=== PATIENT | female | born 1970 | race Caucasian/White ===

== ENCOUNTER 2019-01-31 10:04 | Observation (INO) ==
[2019-01-31] MEDS ORDERED: Aspirin 325 MG TABLET PO ONE (10:45)
--- NOTE | 2019-01-31 10:50 | Emergency Department Note ---
Disposition Clinical Impression: Rash Chest pain Qualifiers: Chest pain type: unspecified Qualified Code(s): R07.9 - Chest pain, unspecified Disposition: Admitted As Inpatient Condition: Fair Referrals: Shad Ryan Jr, MD [Primary Care Provider] - Forms: ED Satisfaction Letter Time of Disposition: 12:18 Chest Pain HPI - General Chief Complaint: ED Chest Pain Stated Complaint: Chest Pain Time Seen by Provider: 01/31/19 10:14 Source: patient Mode of arrival: ambulatory Limitations: no limitations Vital Signs Reviewed: Yes Nursing Notes Reviewed: Yes - History of Present Illness HPI Narrative: 48-year-old female transfer evaluation of chest pain. Patient states she has recently been treated for poison sumac and is been on a prednisone taper now for 2 weeks. States that around 7:00 this morning she started have some uneasiness in her chest. States she did have twinges of chest pain. She also noted pain in her left shoulder as well as her right shoulder. Patient states she has history of left shoulder pain with carpal tunnel. Patient denies any nausea or vomiting. States she was sweating last night. Denying any abdominal pain. No fevers or cough. No dyspnea. No history of any known coronary disease. No history of high blood pressure or diabetes. Does have a family history of MT with her father having heart attack in his 60s. Severity scale (1-10): 7 - Related Data Home Medications Medication Instructions Recorded Confirmed Xanax 11/25/15 Cymbalta 09/10/18 Hydrocodon-Acetamin 7.5-325/15 09/10/18 PriLOSEC 09/10/18 Allergies Allergy/AdvReac Type Severity Reaction Status Date / Time propoxyphene Allergy Nausea Verified 09/10/18 06:59 [From Darvocet-N] All systems ED: reviewed and negative except as stated. Constitutional: Denies: fever Cardiovascular: Reports: chest pain Respiratory: Denies: cough, dyspnea Gastrointestinal: Denies: abdominal pain, nausea, vomiting Chest Pain PMH - Past Medical History Medical history: Reports: GERD Surgical history: Reports: no surgical history Psychiatric history: Reports: no psych history - Social History Smoking Status: Never smoker Alcohol use: Reports: rarely Drug use: Reports: none Physical Exam - General Limitations: no limitations General appearance: alert, in no apparent distress - Head Head exam: atraumatic, normocephalic, normal inspection - Eye Eye exam: Present: normal appearance, PERRL, EOMI - ENT ENT exam: normal exam - Neck Neck exam: Present: normal inspection - Chest Chest inspection: Present: normal inspection, symmetric chest wall rise - Respiratory Respiratory exam: Present: normal lung sounds bilaterally. Absent: respiratory distress - Cardiovascular Cardiovascular exam: Present: regular rate, normal rhythm - Abdominal Exam Abdominal exam: Present: soft, Non-Tender - Extremities Exam Extremities exam: Present: other (Patient has extensive erythema consistent with poison sumac on her right upper extremity. ) - Back Exam Back exam: Present: normal inspection - Neurological Exam Neurological exam: Present: alert - Skin Skin exam: Present: other (Poison sumac noted on the patient's abdomen as well as on the right upper extremity.) Course Vital Signs Temperature 98.0 F 01/31/19 10:17 Pulse Rate 88 01/31/19 10:17 Respiratory Rate 16 01/31/19 10:17 Blood Pressure 128/92 01/31/19 10:17 O2 Sat by Pulse Oximetry 98 01/31/19 10:17 Temperature 98.0 F 01/31/19 10:17 Pulse Rate 74 01/31/19 11:53 Respiratory Rate 16 01/31/19 11:53 Blood Pressure 135/103 01/31/19 11:53 O2 Sat by Pulse Oximetry 98 01/31/19 11:53 Oxygen Delivery Oxygen Delivery Room Air Chest Pain - MDM Narrative Medical decision making narrative: Patient presented for concerns of chest pain. Patient did have a concerning history with chest pressure radiating of the right shoulder and was diaphoretic. Early family history of heart disease in the 50s. Patient's initial troponin is negative. Given the patient's moderate risk patient will be admitted for ACS rule out. Patient is agreeable with that plan of care. Patient was offered skilled troponins in the ED. There is no concerns for PE and/or dissection. - Lab Data Lab results reviewed: Yes I reviewed the patient's lab results. Result diagrams: 01/31/19 10:55 01/31/19 10:55 Lab Results 01/31/19 01/31/19 Range/Units 10:55 10:55 WBC 19.2 H (4.3-11.1) K/mcL RBC 4.51 (3.82-4.97) M/mcL Hgb 13.5 (11.5-15.4) g/dL Hct 40.8 (35.3-44.9) % MCV 90.5 (83.0-100.0) fL MCH 29.9 (28.0-33.3) pg MCHC 33.1 (31.6-35.5) g/dL RDW 12.9 (11.5-14.5) % Plt Count 341 (140-400) K/mcL MPV 9.5 (9.4-12.4) fL Immature Gran % 2.9 (0-4) % Seg Neutrophils % 64.1 % Lymphocytes % 17.8 % Monocytes % 8.7 % Eosinophils % 5.9 % Basophils % 0.6 % Neutrophils # 12.3 H (1.6-8.9) K/mcL Lymphocytes # 3.4 (0.6-4.6) K/mcL Monocytes # 1.7 H (0.0-1.3) K/mcL Eosinophils # 1.1 H (0.0-0.6) K/mcL Basophils # 0.1 (0.0-0.2) K/mcL Sodium 137 (136-145) mEq/L Potassium 3.9 (3.5-5.1) mEq/L Chloride 106 (98-107) mEq/L Carbon Dioxide 24 (23-29) mEq/L BUN 21 H (6-20) mg/dL Creatinine 0.61 (0.60-1.20) mg/dL Est GFR ( Amer) > 60 (> 60) Est GFR (Non-Af Amer) > 60 (> 60) BUN/Creatinine Ratio 34 H (6-26) Glucose 101 (70-105) mg/dL Calculated Osmolality 287 (280-300) Calcium 8.9 (8.6-10.3) mg/dL Troponin I < 0.03 (< 0.04) ng/mL - Radiology Data Radiology results reviewed: Yes I reviewed the patient's radiology results. Chest X-Ray 01/31/19 10:12 IMPRESSION: No evidence of acute cardiopulmonary disease. D/ / Rex Kemp MD / Rex Kemp MD Interpreting Provider: Rex Kemp MD - EKG Data EKG attestation: Yes I reviewed and interpreted this EKG. EKG shows normal: sinus rhythm Rate: normal Rhythm: NSR [place]/QRS: left axis deviation Q waves: v1 Interpretation: no acute changes, nonspecific ST-T wave changes Heart Score - Score History: Highly Suspicious EKG: Normal Age: 45-65 Risk Factors: 1-2 risk factors Troponin: Less than normal limit HEART Score Total: 4 S.Keenan - Rinku Situation: Demographics Background: Presenting Complaint Assessment: Vital Signs, Course and respsone to treatment, Patient/Family Expectation Recommendation: Barrier(s) to disposition, Recommendation based on pending studies, treatments, or consults S.B.AMer Report Given to: Dr. Lina Dobbs Repor Time: 12:17 Attestation Statement - Attestation Attestation: This documentation is done with the assistance of Dragon dictation. Despite efforts made to ensure accuracy, there may be inaccuracies in supervisor net making or spelling and typographical errors. I examined this patient and my medical decision-making was reviewed with the Resident Physician. I agree with the documented findings, disposition and treatment plan as described except to the extent set forth below. Patient seen and evaluated by Dr. Dacosta and myself, I agree with his evaluation and management plan, I supervised the care the patient's stay. Patient comes in today complaining of chest pain with anterior chest when into both her shoulder blades. She says that she thinks this could be anxiety she has had that before she said 8 years ago she had a normal stress test. She says that right now the pain is better. She has also been suffering with what she describes as poison sumac she got a rash on her arms and legs is been through 3 courses steroids and has not gone away. No difficulty breathing or swallowing. Awaiting labs and then shared decision-making with her when those come back. She is in agreement with plan.
[2019-01-31 11:08] LABS: Basophils # 0.1 K/mcL (0.0-0.2); Basophils % 0.6 %; Eosinophils # 1.1 K/mcL (0.0-0.6); Eosinophils % 5.9 %; Hematocrit 40.8 % (35.3-44.9); Hemoglobin 13.5 g/dL (11.5-15.4); Immature Granulocytes % 2.9 % (0-4); Lymphocytes # 3.4 K/mcL (0.6-4.6); Lymphocytes % 17.8 %; Mean Corpuscular HGB Conc 33.1 g/dL (31.6-35.5); Mean Corpuscular Hemoglobin 29.9 pg (28.0-33.3); Mean Corpuscular Volume 90.5 fL (83.0-100.0); Mean Platelet Volume 9.5 fL (9.4-12.4); Monocytes # 1.7 K/mcL (0.0-1.3); Monocytes % 8.7 %; Neutrophils # 12.3 K/mcL (1.6-8.9); Platelet Count 341 K/mcL (140-400); Red Blood Count 4.51 M/mcL (3.82-4.97); Red Cell Distribution Width 12.9 % (11.5-14.5); Segmented Neutrophils % 64.1 %
[2019-01-31 11:29] LABS: BUN/Creatinine Ratio 34 (6-26); Blood Urea Nitrogen 21 mg/dL (6-20); Calcium 8.9 mg/dL (8.6-10.3); Carbon Dioxide 24 mEq/L (23-29); Chloride 106 mEq/L (98-107); Glucose 101 mg/dL (70-105); Osmolality,Calculated 287 (280-300); Potassium 3.9 mEq/L (3.5-5.1); Sodium 137 mEq/L (136-145); Troponin I < 0.03 ng/mL (< 0.04); eGFR For Non-African Americans > 60 (> 60)
[2019-01-31] MEDS ORDERED: Nitroglycerin 0.4 MG TAB.SUBL SL PRN (12:10)
[2019-01-31] MEDS ORDERED: Ondansetron 4 MG/2 ML VIAL IVP PRN (12:54)
[2019-01-31] MEDS ORDERED: Acetaminophen 325 MG TABLET PO PRN (12:54)
--- NOTE | 2019-01-31 12:54 | Internal Med History&Physical ---
Date of Encounter: 01/31/19 Time of Encounter: 12:45 Internal Medicine - H&P: HPI Chief complaint: Chest pain Admitted From: Emergency Dept History of present illness: Mary Chopra is a 48 F w hx GERD, anxiety, who p/w chest pain. Pain began this AM and was a pressure-like sensation. Not exertional, no improvement with rest. Pain is not positional. She does report some diaphoresis and nausea, and says that the pain radiated into her left shoulder and subsequently over into her right shoulder. She denies previous symptoms like this in the past. Never smoker. No personal hx of diabetes, HTN, or HLD. Does have +FHx of diabetes and father with DE in his 50s. The pain currently has gone away, and she would like to go home if possible. Recently, patient got into poison sumac and has been on steroids for the last two weeks, initially at a small dose (30 mg then 5 less each day for total of 6 days), and with persistence of symptoms she was placed on higher dose taper and she just decreased from 40 to 20 yesterday. Says her rash is getting better and while still very itchy, it is not red or hot or painful and she denies fevers. No recent vURIs. In the ED, pt vitals wnl. CXR, ECG, and trop unremarkable. Labs with WBC 19, BUN 21 (BUN:Cr ratio 34), trop undetectable x1. Given ASA and admission requested. Past medical, surgical, social, and family histories reviewed and updated as below. Past Med Surg Social Fam HX - Past Medical History Medical history: GERD Psychiatric history: no psych history - Past Surgical History Surgical History: no surgical history - Social History Smoking Status: Never smoker Smokeless Tobacco Status: Yes Alcohol use: rarely Drug use: none Internal Medicine - H&P: Meds ALPRAZolam [Xanax 1 MG Tablet] 1 mg PO HS PRN 01/31/19 [History] HYDROcodone/Acet 5/325 mg [[place] 5-325 mg] 1 tab PO BID PRN 01/31/19 [History] Lansoprazole [Prevacid] 30 mg PO DAILY 01/31/19 [History] Vortioxetine Hydrobromide [Trintellix] 10 mg PO DAILY 01/31/19 [History] Allergy/AdvReac Type Severity Reaction Status Date / Time propoxyphene Allergy See Verified 01/31/19 13:40 [From Steffen] Comments All Systems PM: A 10-system review of systems was performed and is negative for pertinent findings except as documented above in the HPI. - Constitutional Vitals: Temp Pulse Resp BP Pulse Ox 98.0 F 71 18 135/103 99 01/31/19 10:17 01/31/19 12:32 01/31/19 12:32 01/31/19 11:53 01/31/19 12:32 Exam: General: NAD, AAOx3, good eye contact, well appearing, not anxious or makayla phoretic Head: Atraumatic, normocephalic. Face symmetric Eyes: EOMI, sclerae anicteric ENT: Mucous membranes moist. Normal oral mucosa and dentition. Trachea midline. Thoracic: No visible chest wall deformities. Normal breath sounds b/l, no wheezing or crackles Cardio: Normal S1 and S2, regular rate and rhythm, no murmurs. Abdomen: Soft, nontender, nondistended. Extremities: Warm, well perfused. DP pulses 2+ b/l. No clubbing, cyanosis. No edema Skin: Faint erythema on most of RUE Neuro: Awake, fully oriented. Good memory, concentration, attention. Speech fluent. Internal Med - H&P Results - Labs CBC & Chem 7: 01/31/19 10:55 01/31/19 10:55 Labs: Short CBC 01/31/19 Range/Units 10:55 WBC 19.2 H (4.3-11.1) K/mcL Hgb 13.5 (11.5-15.4) g/dL Hct 40.8 (35.3-44.9) % Plt Count 341 (140-400) K/mcL Neutrophils # 12.3 H (1.6-8.9) K/mcL BMP 01/31/19 10:55 Sodium 137 Potassium 3.9 Chloride 106 Carbon Dioxide 24 BUN 21 H Creatinine 0.61 Glucose 101 Calcium 8.9 Cardiac Enzymes 01/31/19 Range/Units 10:55 Troponin I < 0.03 (< 0.04) ng/mL - Impressions ITS Impressions Chest X-Ray 01/31/19 10:12 IMPRESSION: No evidence of acute cardiopulmonary disease. D/ / Rex Kemp MD / Rex Kemp MD Interpreting Provider: Rex Kemp MD - Summary of Assessment and Plan Summary of Assessment and Plan: Mary Chopra is a 48 F w hx GERD and anxiety who p/w atypical chest pain and leukocytosis. Chest pain: ddx including GERD w recent prednisone use, anxiety, possible CAD. HEART score is 3 at highest, with initial trop and ECG unremarkable. Shared decision making w patient results in patient requesting discharge today if repeat trop is normal, with follow up outpatient for further testing per PCP if warranted. - could consider outpatient exercise ECG stress Leukocytosis: possible allergic contact dermatitis or from steroids, no infectious s/sx, rec close outpatient follow up Elevated BUN:Cr ratio: suspect 2/2 increased urate production from steroids, encourage PO hydration and d/c steroids GERD: home PPI Mood disorder: home cymbalta, holding home benzo PPx: ambulation FEN: cardiac Lines: PIV Consults: Code: Full Dispo: obs for chest pain, anticipate d/c later today
[2019-01-31] MEDS ORDERED: Dexamethasone 10 MG/ML VIAL IVP ONE (13:11)
[2019-01-31 14:04] LABS: Estimated Average Glucose 111 mg/dl; Hemoglobin A1C 5.5 %
[2019-01-31 16:19] VITALS: BP 126/87
--- NOTE | 2019-01-31 16:25 | Discharge Summary ---
- NOTES TO OUTPATIENT PROVIDER Notes to Outpatient Provider: Chest pain; trops negative. Consider outpatient exercise stress test. Does have leukocytosis and merits repeating when no longer on steroids. Date of Encounter: 01/31/19 Time of Encounter: 16:23 Hospital course: Dear Doctors, I recently had the opportunity to care for this patient during their recent hospital stay at [facility]. Mary Chopra is a 48 F w hx GERD, anxiety, who presented at time of admission with chest pain. Pain began this AM and was a pressure-like sensation. Not exertional, no improvement with rest, not positional. She does report some diaphoresis and nausea, and says that the pain radiated into her left shoulder and subsequently over into her right shoulder but she feels this was musculoskeletal. She denies previous symptoms like this in the past. Never smoker. No personal hx of diabetes, HTN, or HLD. Does have +FHx of diabetes and father with UT in his 50s. Pain resolved spontaneously shortly after arrival to ED. Of note, pt has been on steroids recently for poison sumac and it is improving slowly, still itchy. No other rashes, no fevers, no SOB or cough. In the ED, pt vitals wnl. CXR, ECG, and trop x2 unremarkable. Labs unremarkable ex cept for WBC 19. Pt admitted by ED but at time of my discussion, she requests discharge with outpatient follow up. This is reasonable given her low HEART score and seeming reliability. Dx: atypical chest pain, leukocytosis Pertinent tests/consults: CXR Follow up: PCP within 1 week to recheck CBC and consider exercise ECG stress Tests pending: none Med changes: stop prednisone Mental status: awake, fully oriented Code status: Full Admit and discharge on same day, <8h apart It has been my pleasure participating in this patient's care. Please contact me with any questions or concerns regarding their hospital stay. Sincerely, Bennie Francis MD - Discharge Medications Prescriptions: Continued Vortioxetine Hydrobromide [Trintellix] 10 mg PO DAILY Lansoprazole [Prevacid] 30 mg PO DAILY HYDROcodone/Acet 5/325 mg [[place] 5-325 mg] 1 tab PO BID PRN PRN Reason: Mild Pain ALPRAZolam [Xanax 1 MG Tablet] 1 mg PO HS PRN PRN Reason: Anxiety Home Medications: ALPRAZolam [Xanax 1 MG Tablet] 1 mg PO HS PRN 01/31/19 [History] HYDROcodone/Acet 5/325 mg [[place] 5-325 mg] 1 tab PO BID PRN 01/31/19 [History] Lansoprazole [Prevacid] 30 mg PO DAILY 01/31/19 [History] Vortioxetine Hydrobromide [Trintellix] 10 mg PO DAILY 01/31/19 [History] Allergies/Adverse Reactions: Allergy/AdvReac Type Severity Reaction Status Date / Time propoxyphene Allergy See Verified 01/31/19 13:40 [From KodyWatson] Comments Date of admission: 01/31/19 13:07 Primary care physician: Shad Ryan Jr, MD - Constitutional Vitals: Temp Pulse Resp BP Pulse Ox 98.6 F 80 17 126/87 97 01/31/19 16:19 01/31/19 16:19 01/31/19 16:19 01/31/19 16:19 01/31/19 16:19 Exam: General: NAD, AAOx3, good eye contact, well appearing, not anxious or diaph oretic Head: Atraumatic, normocephalic. Face symmetric Eyes: EOMI, sclerae anicteric ENT: Mucous membranes moist. Normal oral mucosa and dentition. Trachea midline. Thoracic: No visible chest wall deformities. Normal breath sounds b/l, no wheezing or crackles Cardio: Normal S1 and S2, regular rate and rhythm, no murmurs. Abdomen: Soft, nontender, nondistended. Extremities: Warm, well perfused. DP pulses 2+ b/l. No clubbing, cyanosis. No edema Skin: Faint erythema on most of RUE Neuro: Awake, fully oriented. Good memory, concentration, attention. Speech fluent. - Patient Status Disposition: Home, Self-Care Condition: Good Functional capacity at discharge: independent ambulation Overall status at discharge: patient is back to baseline - Discharge Instructions Follow Up With: Shad Ryan Jr, MD [Primary Care Provider] - 02/03/19 11:00 am - Diet and Activity Activity: resume usual activities as tolerated Diet: advance to your usual diet
--- NOTE | 2019-02-01 03:59 | Electrocardiograph Report ---
[facility] Test Date: 2019-01-31 Pat Name: Mary Chopra Department: EXAM7 Room: [facility] Gender: F Computer Teacher: : 1970 Requested By: Preet Laboy Order Number: [id number] Reading MD: Bartolo White Measurements Intervals [place] Rate: 88 P: 42 HI: 146 QRS: 15 QRSD: 100 T: 4 QT: 363 QTc: 440 Interpretive Statements Sinus rhythm Electronically Signed On 02-01-2019 3:57:39 EDT by Bartolo White
== END 2019-01-31 16:49 | disposition home or self-care (01) ==
LOC: EMEROOARM 10:04 → 2SOUTHHOLD 10:04 → SUATTDRO 13:07 → 2SOUTHHOLD 13:35
PROVIDERS: ADMIT Internal Medicine; ATTEND Internal Medicine